=== PATIENT | female | born 1955 | race Caucasian/White ===

== ENCOUNTER → 2019-03-23 | Outpatient (CLI) | payer BC, OTHER ==
--- NOTE | 2019-04-03 20:17 | SLEEP ---
[facility] [address] [place] [address] SLEEP STUDY REPORT Name: HOLLIS ESCALERA Room: [facility]#: [id number] Admission: 03/23/19 Attend Phys: Landen Hernandez Discharge: Date of : 57 Report #: [id number] THIS REPORT FOR: //name// CC: WINIFRED NAVARRO DO Winifred Navarro This study has been reviewed in its entirety by a board certified sleep specialist DATE OF SERVICE: 03/23/2019 HOME SLEEP STUDY The patient is a 63 years old who weighs 157 pounds with a BMI of 28.7. The patient's [place] score was 5. The patient underwent home sleep study performed by [facility]. Total recording time was 466 minutes. The patient's [place] score was 5. During the night study, the patient had 51 obstructive apneas, no central or mixed apneas and 9 hypopneas. The patient's apnea hypopnea index was 11 per hour with a supine index of 1.9 per hour. Nocturnal oximetry study revealed an average oxygen saturation of 94% with a lowest of 83%. Six minutes were spent at an oxygen saturation less than 90%. Mean heart rate was 76 beats per minute with a maximum of 101 beats per minute. IMPRESSION: 1. Mild sleep apnea-hypopnea syndrome with an AHI of 11 per hour. 2. Mild nocturnal hypoxia secondary to obstructive sleep apnea. RECOMMENDATIONS: 1. The patient has mild sleep apnea. If the patient is clinically symptomatic or has comorbid medical conditions, then the patient's sleep apnea can be treated with either an oral appliance versus home auto-titration study. 2. Weight loss is advised. 3. Avoid [employer] depressants. 4. Cautioned regarding driving until symptoms of sleep apnea resolve with the above recommendations. <ELECTRONICALLY SIGNED> By: Merlin Han MD 04/03/192016 0821 [id number] Han MD /nt
== END ==
LOC: M.SLEEPLAB 10:00
DX: G47.30 Sleep apnea, unspecified (principal); G47.00 Insomnia, unspecified